=== PATIENT | male | born 1955 | race African-American/Black ===

== ENCOUNTER 2018-11-01 06:08 | Inpatient (IN) | payer MEDICAID ==
[~2018-11-01] VITALS: Ht 165.1 cm; Wt 60.9 kg
[2018-11-01] MEDS ORDERED: MORPHINE SULFATE 4 MG/ML CPJ (NOT FOR IM USE) IV STA (06:39)
[2018-11-01 07:07] LABS: BASOPHILS % 0.5 % (0.0-2.0); EOSINOPHILS % 1.9 % (0.0-5.0); HEMATOCRIT. 28.6 % (42.0-52.0); HEMOGLOBIN. 8.8 g/dL (14.0-18.0); LYMPHOCYTES % 16.5 % (20.0-50.0); MEAN CORPUSCULAR HEMOGLOBIN 27.4 pg (28.0-32.0); MEAN CORPUSCULAR VOLUME 89.1 fL (80.0-94.0); MONOCYTES % 10.6 % (2.0-8.0); NEUTROPHILS % 70.5 % (40.0-76.0); PLATELET 312 x1000/uL (130-400); RED BLOOD CELL COUNT 3.21 mill/uL (4.7-6.1)
[2018-11-01 07:12] LABS: CHLORIDE 107 mEq/L (98-107)
[2018-11-01] MEDS ORDERED: SODIUM CHLORIDE 0.9% 1,000 ML IV ONE (07:28)
[2018-11-01 08:27] LABS: BG BASE EXCESS -1.9 mmol/L (-2.0-2.0); BG CARBOXYHEMOGLOBIN 0.5 % (0.5-1.5); BG FRACTION INSPIRED OXYGEN 100; BG HCO3 ACT 21.5 mmol/L (22.0-26.0); BG METHEMOGLOBIN 1.2 % (0.0-1.5); BG OXYHEMOGLOBIN 97.3 % (94.0-97.0); BG PCO2 31.3 mmHg (35.0-45.0); BG PH 7.455 (7.350-7.450); BG PO2 206.7 mmHg (75.0-100.0); BG SAMPLE SITE RIGHT RADIAL; BG TOTAL HEMOGLOBIN 9.1 g/dL (12.0-18.0); BG VENT MODE MASK - NRB
[2018-11-01] MEDS ORDERED: IOHEXOL-350 100 ML BOTTLE ONE (09:06)
[2018-11-01] MEDS ORDERED: ONDANSETRON HCL 4MG/2ML INJ IV ONE (11:30)
[2018-11-01] MEDS ORDERED: NA PHOS,M-B/NA PHOS,DI-BA ENEMA 118ML PR PRN (12:45)
[2018-11-01] MEDS ORDERED: HYDROCODONE/ACETAMINOPHEN 5/325MG TABLET PO PRN (12:45)
[2018-11-01] MEDS ORDERED: ACETAMINOPHEN 325MG TABLET PO PRN (12:45)
[2018-11-01] MEDS ORDERED: ACETAMINOPHEN 650MG/20.3ML UDC GT PRN (12:45)
[2018-11-01] MEDS ORDERED: MAGNESIUM/ALUMINUM HYDROXIDE/SIMETHICONE 30ML UDC PO PRN (12:45)
[2018-11-01] MEDS ORDERED: IPRATROPIUM/ALBUTEROL 0.5-3(2.5)MG/3ML NEB INH PRN (12:45)
[2018-11-01] MEDS ORDERED: ACETAMINOPHEN 650MG SUPP PR PRN (12:45)
[2018-11-01] MEDS ORDERED: DIPHENHYDRAMINE 50MG/ML VIAL IV PRN (12:45)
[2018-11-01 15:00] VITALS: BP 164/88
[2018-11-01] MEDS ORDERED: METHYLPREDNISOLONE SOD SUCC 40 MG/ML VIAL IV SCH (15:15)
[2018-11-01 15:30] VITALS: BP 164/88
[2018-11-01] MEDS: CLONIDINE 0.1MG TABLET PO PRN (15:55)
[2018-11-01] MEDS ORDERED: FERR325T6 PO (16:22)
[2018-11-01] MEDS ORDERED: HYDR-4134 PO (16:22)
[2018-11-01] MEDS ORDERED: ASPI-1158 PO (16:23)
[2018-11-01] MEDS ORDERED: ISOS30TA6 PO (16:24)
[2018-11-01] MEDS ORDERED: FAMO20TA8 PO (16:24)
[2018-11-01] MEDS ORDERED: CLOP75TA33 PO (16:25)
[2018-11-01] MEDS ORDERED: ATOR-2 PO (16:25)
[2018-11-01] MEDS ORDERED: CARV6.2548 PO (16:25)
[2018-11-01] MEDS ORDERED: NITR0.4T49 SL (16:26)
[2018-11-01] MEDS ORDERED: MOME13HF2 INH (16:27)
[2018-11-01] MEDS ORDERED: FUROSEMIDE 20MG/2ML VIAL IVP NR (17:30)
[2018-11-01] MEDS ORDERED: IPRATROPIUM/ALBUTEROL 0.5-3(2.5)MG/3ML NEB HHN PRN (17:30)
[2018-11-01 18:51] LABS: CREATINE KINASE MB FRACTION 2.3 ng/mL (0.5-3.6)
[2018-11-01 20:06] VITALS: BP 149/92
[2018-11-01 20:46] LABS: CLARITY URINE CLEAR (CLEAR); COLOR URINE YELLOW (YELLOW); KETONES URINE NEGATIVE (NEGATIVE); LEUKOCYTE ESTERASE URINE NEGATIVE (NEGATIVE); NITRITE URINE NEGATIVE (NEGATIVE); OCCULT BLOOD URINE NEGATIVE (NEGATIVE); PROTEIN URINE 1+ (NEGATIVE); SPECIFIC GRAVITY URINE 1.034 (1.005-1.030); UROBILINOGEN URINE 0.2 E.U./dL (0.2-1.0)
[2018-11-01] MEDS: IPRATROPIUM/ALBUTEROL 0.5-3(2.5)MG/3ML NEB INH SCH (21:09)
[2018-11-01] MEDS: BUDESONIDE 0.5MG/2ML NEB HHN SCH (21:10)
[2018-11-01] MEDS: SODIUM CHLORIDE 0.9% INJ 3ML FLUSH IVF SCH (21:42)
[2018-11-02] VITALS: BP 153/89
[2018-11-02] MEDS: IPRATROPIUM/ALBUTEROL 0.5-3(2.5)MG/3ML NEB INH SCH ×4 (00:45→21:01)
[2018-11-02] MEDS: SODIUM CHLORIDE 0.45% 1,000 ML IV SCH ×3 (02:30→22:41)
[2018-11-02 03:01] LABS: BASOPHILS % 0.8 % (0.0-2.0); HEMATOCRIT. 30.9 % (42.0-52.0); HEMOGLOBIN. 9.2 g/dL (14.0-18.0); LYMPHOCYTES % 23.6 % (20.0-50.0); MEAN CORPUSCULAR HEMOGLOBIN 26.6 pg (28.0-32.0); MEAN CORPUSCULAR VOLUME 89.4 fL (80.0-94.0); MONOCYTES % 3.4 % (2.0-8.0); NEUTROPHILS % 72.2 % (40.0-76.0); PLATELET 352 x1000/uL (130-400); RED BLOOD CELL COUNT 3.46 mill/uL (4.7-6.1); RED CELL DISTRIBUTION WIDTH 18.2 % (11.6-14.6)
[2018-11-02 03:04] LABS: CHLORIDE 106 mEq/L (98-107)
[2018-11-02 03:12] LABS: LDL CHOLESTEROL 97 mg/dL (5-100)
[2018-11-02 03:13] LABS: HDL CHOLESTEROL 66 mg/dL (40-59)
[2018-11-02 03:16] LABS: CREATINE KINASE MB FRACTION 2.3 ng/mL (0.5-3.6)
[2018-11-02 04:00] VITALS: BP 155/90
[2018-11-02] MEDS: SODIUM CHLORIDE 0.9% INJ 3ML FLUSH IVF SCH ×3 (06:02→22:41)
[2018-11-02 08:00] VITALS: BP 189/106
[2018-11-02] MEDS ORDERED: FUROSEMIDE 20MG/2ML VIAL IVP SCH (09:00)
[2018-11-02 12:00] VITALS: BP 144/87
[2018-11-02] MEDS: CLONIDINE 0.1MG TABLET PO PRN (13:35)
[2018-11-02 16:00] VITALS: BP 168/91
[2018-11-02] MEDS ORDERED: MAGNESIUM HYDROXIDE 400MG/5ML 30ML UDC PO NR (16:30)
[2018-11-02] MEDS: FUROSEMIDE 20MG/2ML VIAL IVP SCH (17:00)
[2018-11-02 20:00] VITALS: BP 157/89
[2018-11-02] MEDS: BUDESONIDE 0.5MG/2ML NEB HHN SCH (21:14)
[2018-11-02] MEDS: ENOXAPARIN 30MG/0.3ML SYR SUBCUT SCH (22:40)
[2018-11-03] VITALS: BP 151/81
[2018-11-03] MEDS: IPRATROPIUM/ALBUTEROL 0.5-3(2.5)MG/3ML NEB INH SCH ×4 (01:20→21:17)
[2018-11-03 04:00] VITALS: BP 156/85
[2018-11-03] MEDS: SODIUM CHLORIDE 0.9% INJ 3ML FLUSH IVF SCH ×3 (06:29→22:33)
[2018-11-03] MEDS: BUDESONIDE 0.5MG/2ML NEB HHN SCH ×2 (09:14→21:17)
[2018-11-03] MEDS: FUROSEMIDE 20MG/2ML VIAL IVP SCH (09:31)
[2018-11-03] MEDS: SODIUM CHLORIDE 0.45% 1,000 ML IV SCH (09:46)
[2018-11-03 11:50] VITALS: BP 170/89
[2018-11-03] MEDS: CLONIDINE 0.1MG TABLET PO PRN (11:55)
[2018-11-03] MEDS: ASPIRIN 81MG EC TABLET PO SCH (14:32)
[2018-11-03] MEDS: CARVEDILOL 6.25 MG TABLET PO SCH ×2 (14:33→22:32)
[2018-11-03] MEDS: HYDRALAZINE HCL 50MG TABLET PO SCH ×2 (14:33→22:32)
[2018-11-03] MEDS ORDERED: SODIUM POLYSTYRENE SULFONATE 15 G/60 ML BOT PO SCH (15:00)
[2018-11-03 16:00] VITALS: BP 150/72
[2018-11-03] MEDS ORDERED: CARVEDILOL 6.25 MG TABLET PO SCH (16:45)
[2018-11-03] MEDS ORDERED: CLOPIDOGREL 75MG TABLET PO SCH (16:45)
[2018-11-03] MEDS ORDERED: MEDICATION NOT ON FORMULARY EA (Hydralazine Hcl 25 MG) PO SCH (16:45)
[2018-11-03] MEDS: FUROSEMIDE 40MG/4ML VIAL IV SCH (17:04)
[2018-11-03] MEDS: ENOXAPARIN 30MG/0.3ML SYR SUBCUT SCH (18:19)
[2018-11-03] MEDS: ISOSORBIDE MONONITRATE 30MG TABLET SR 24HR PO SCH (18:19)
[2018-11-03 20:00] VITALS: BP 116/54
[2018-11-03] MEDS: ATORVASTATIN CALCIUM 40MG TABLET PO SCH (22:32)
[2018-11-03 23:31] LABS: BASOPHILS % 0.3 % (0.0-2.0); HEMATOCRIT. 27.4 % (42.0-52.0); HEMOGLOBIN. 7.9 g/dL (14.0-18.0); LYMPHOCYTES % 7.7 % (20.0-50.0); MEAN CORPUSCULAR HEMOGLOBIN 27.5 pg (28.0-32.0); MEAN CORPUSCULAR VOLUME 95.2 fL (80.0-94.0); MONOCYTES % 10.8 % (2.0-8.0); NEUTROPHILS % 81.2 % (40.0-76.0); PLATELET 269 x1000/uL (130-400); RED BLOOD CELL COUNT 2.88 mill/uL (4.7-6.1); RED CELL DISTRIBUTION WIDTH 18.6 % (11.6-14.6)
[2018-11-03 23:37] LABS: CHLORIDE 106 mEq/L (98-107)
[2018-11-04] VITALS (7 sets, daily range): BP systolic 120–138; BP diastolic 68–82
[2018-11-04] MEDS: IPRATROPIUM/ALBUTEROL 0.5-3(2.5)MG/3ML NEB INH SCH ×4 (01:13→20:30)
[2018-11-04] MEDS ORDERED: CALCIUM CHLORIDE 1GM/10ML SYR IV ONE (01:45)
[2018-11-04] MEDS ORDERED: SODIUM BICARBONATE 8.4% 1 MEQ/ML 50ML SYR IV NR (02:00)
[2018-11-04] MEDS ORDERED: SODIUM POLYSTYRENE SULFONATE 15 G/60 ML BOT PO NR (02:00)
[2018-11-04] MEDS ORDERED: INSULIN REGULAR (HUMULIN R) UD 100 UNITS/ML SYR IV NR (02:00)
[2018-11-04] MEDS ORDERED: CALCIUM CHLORIDE 1000 MG in DEXTROSE 5% WATER 100 ML IV NR (02:00)
[2018-11-04] MEDS ORDERED: FUROSEMIDE 100MG/10ML VIAL IVP NR (02:00)
[2018-11-04] MEDS ORDERED: DEXTROSE 50% WATER 50ML SYRINGE IV NR (04:00)
[2018-11-04] MEDS: HYDRALAZINE HCL 50MG TABLET PO SCH ×3 (06:03→21:30)
[2018-11-04] MEDS: SODIUM CHLORIDE 0.9% INJ 3ML FLUSH IVF SCH ×3 (06:44→21:31)
[2018-11-04 07:27] LABS: BASOPHILS % 0.2 % (0.0-2.0); HEMATOCRIT. 25.2 % (42.0-52.0); HEMOGLOBIN. 7.9 g/dL (14.0-18.0); LYMPHOCYTES % 9.8 % (20.0-50.0); MEAN CORPUSCULAR HEMOGLOBIN 27.1 pg (28.0-32.0); MEAN CORPUSCULAR VOLUME 85.9 fL (80.0-94.0); MEAN PLATELET VOLUME 7.6 fl (7.4-10.4); MONOCYTES % 14.4 % (2.0-8.0); NEUTROPHILS % 75.6 % (40.0-76.0); PLATELET 255 x1000/uL (130-400); RED BLOOD CELL COUNT 2.93 mill/uL (4.7-6.1); RED CELL DISTRIBUTION WIDTH 17.9 % (11.6-14.6)
[2018-11-04] MEDS: INSULIN LISPRO 100 UNITS/ML SUBCUT SCH ×4 (07:50→21:00)
[2018-11-04] MEDS ORDERED: DEXTROSE 50% WATER 50ML SYRINGE IV PRN (08:00)
[2018-11-04 08:17] LABS: PHOSPHORUS 8.1 mg/dL (2.5-4.9)
[2018-11-04] MEDS: CARVEDILOL 6.25 MG TABLET PO SCH (08:51)
[2018-11-04] MEDS: FUROSEMIDE 40MG/4ML VIAL IV SCH (08:51)
[2018-11-04] MEDS: ISOSORBIDE MONONITRATE 30MG TABLET SR 24HR PO SCH (08:51)
[2018-11-04] MEDS: ASPIRIN 81MG EC TABLET PO SCH (08:51)
[2018-11-04 09:20] LABS: INR 1.5; PROTHROMBIN TIME 15.4 sec (9.1-11.1)
[2018-11-04] MEDS: BUDESONIDE 0.5MG/2ML NEB HHN SCH ×2 (09:29→20:30)
[2018-11-04] MEDS ORDERED: LIDOCAINE HCL 1% 20ML VIAL (Pyxis) INJ ONE (09:48)
[2018-11-04] MEDS ORDERED: SODIUM BICARBONATE 4% (2.4MEQ) 5ML VIAL IV ONE (09:48)
[2018-11-04] MEDS: BLOOD SUGAR DIAGNOSTIC STRIP TEST SCH ×3 (12:57→21:31)
[2018-11-04] MEDS: CALCIUM ACETATE 667MG CAPSULE PO SCH ×2 (13:27→18:37)
[2018-11-04] MEDS: ENOXAPARIN 30MG/0.3ML SYR SUBCUT SCH (18:37)
[2018-11-04] MEDS: ATORVASTATIN CALCIUM 40MG TABLET PO SCH (21:30)
[2018-11-04] MEDS: CARVEDILOL 12.5MG TABLET PO SCH (21:30)
[2018-11-04] MEDS: AMLODIPINE 5MG TABLET PO SCH (21:31)
[2018-11-05] VITALS (7 sets, daily range): BP systolic 129–158; BP diastolic 72–89
[2018-11-05] MEDS: IPRATROPIUM/ALBUTEROL 0.5-3(2.5)MG/3ML NEB INH SCH ×3 (02:47→20:35)
[2018-11-05] MEDS: SODIUM CHLORIDE 0.9% INJ 3ML FLUSH IVF SCH ×3 (05:45→21:47)
[2018-11-05] MEDS: HYDRALAZINE HCL 50MG TABLET PO SCH ×3 (06:06→21:36)
[2018-11-05] MEDS: BLOOD SUGAR DIAGNOSTIC STRIP TEST SCH ×4 (06:27→21:36)
[2018-11-05 06:30] LABS: BASOPHILS % 0.3 % (0.0-2.0); EOSINOPHILS % 0.3 % (0.0-5.0); HEMATOCRIT. 23.7 % (42.0-52.0); HEMOGLOBIN. 7.3 g/dL (14.0-18.0); LYMPHOCYTES % 11.6 % (20.0-50.0); MEAN CORPUSCULAR HEMOGLOBIN 26.8 pg (28.0-32.0); MEAN CORPUSCULAR VOLUME 86.9 fL (80.0-94.0); MEAN PLATELET VOLUME 7.7 fl (7.4-10.4); MONOCYTES % 10.7 % (2.0-8.0); NEUTROPHILS % 77.1 % (40.0-76.0); PLATELET 192 x1000/uL (130-400); RED BLOOD CELL COUNT 2.73 mill/uL (4.7-6.1); RED CELL DISTRIBUTION WIDTH 18.4 % (11.6-14.6)
[2018-11-05 06:31] LABS: PHOSPHORUS 4.2 mg/dL (2.5-4.9)
[2018-11-05] MEDS: INSULIN LISPRO 100 UNITS/ML SUBCUT SCH ×4 (07:50→21:00)
[2018-11-05] MEDS: CALCIUM ACETATE 667MG CAPSULE PO SCH ×3 (07:50→18:26)
[2018-11-05] MEDS: ASPIRIN 81MG EC TABLET PO SCH (08:44)
[2018-11-05] MEDS: AMLODIPINE 5MG TABLET PO SCH ×2 (08:45→21:00)
[2018-11-05] MEDS: CARVEDILOL 12.5MG TABLET PO SCH ×2 (08:45→21:00)
[2018-11-05] MEDS: ISOSORBIDE MONONITRATE 30MG TABLET SR 24HR PO SCH (09:00)
[2018-11-05 11:18] LABS: HEPATITIS B SURFACE AB 720.5 mIU/mL
[2018-11-05 11:27] LABS: HEPATITIS B SURFACE ANTIGEN NEGATIVE
[2018-11-05] MEDS ORDERED: PAPAVERINE HCL 30 MG/ML 2ML IV ONE (12:19)
[2018-11-05] MEDS ORDERED: LIDOCAINE HCL 1% 20ML VIAL (Pyxis) INJ ONE (12:19)
[2018-11-05] MEDS ORDERED: HEPARIN SODIUM 1,000 UNIT/1ML VIAL IV ONE (12:20)
[2018-11-05] MEDS ORDERED: THROMBIN (BOVINE) 5000 UNITS/VIAL TOP ONE (12:20)
[2018-11-05] MEDS ORDERED: BACITRACIN 15GM TUBE TOP ONE (12:20)
[2018-11-05] MEDS ORDERED: BACITRACIN 50,000 UNITS/VIAL ONE (12:21)
[2018-11-05] MEDS ORDERED: BUPIVACAINE HCL/PF 0.5% (5MG/ML) 10ML ONE (12:21)
[2018-11-05] MEDS ORDERED: NORMAL SALINE 0.9% 10 ML SYR ONE (12:21)
[2018-11-05] MEDS: ENOXAPARIN 30MG/0.3ML SYR SUBCUT SCH (18:26)
[2018-11-05] MEDS: ATORVASTATIN CALCIUM 40MG TABLET PO SCH (21:47)
[2018-11-06] VITALS: BP 133/73
[2018-11-06] MEDS: IPRATROPIUM/ALBUTEROL 0.5-3(2.5)MG/3ML NEB INH SCH ×3 (02:09→13:20)
[2018-11-06 04:00] VITALS: BP 140/79
[2018-11-06] MEDS: SODIUM CHLORIDE 0.9% INJ 3ML FLUSH IVF SCH ×2 (05:03→13:35)
[2018-11-06] MEDS: BLOOD SUGAR DIAGNOSTIC STRIP TEST SCH ×3 (06:25→17:53)
[2018-11-06] MEDS: HYDRALAZINE HCL 50MG TABLET PO SCH ×2 (06:28→13:31)
[2018-11-06 07:05] LABS: BASOPHILS % 0.4 % (0.0-2.0); EOSINOPHILS % 1.3 % (0.0-5.0); HEMATOCRIT. 24.3 % (42.0-52.0); HEMOGLOBIN. 7.7 g/dL (14.0-18.0); LYMPHOCYTES % 11.5 % (20.0-50.0); MEAN CORPUSCULAR HEMOGLOBIN 27.3 pg (28.0-32.0); MEAN CORPUSCULAR VOLUME 86.8 fL (80.0-94.0); MEAN PLATELET VOLUME 7.5 fl (7.4-10.4); MONOCYTES % 12.9 % (2.0-8.0); NEUTROPHILS % 73.9 % (40.0-76.0); PLATELET 133 x1000/uL (130-400); RED BLOOD CELL COUNT 2.81 mill/uL (4.7-6.1); RED CELL DISTRIBUTION WIDTH 18.2 % (11.6-14.6)
[2018-11-06] MEDS: INSULIN LISPRO 100 UNITS/ML SUBCUT SCH ×3 (07:50→17:50)
[2018-11-06 07:51] LABS: PHOSPHORUS 2.8 mg/dL (2.5-4.9)
[2018-11-06 08:00] VITALS: BP 146/76
[2018-11-06] MEDS: ISOSORBIDE MONONITRATE 30MG TABLET SR 24HR PO SCH (09:53)
[2018-11-06] MEDS: ASPIRIN 81MG EC TABLET PO SCH (09:54)
[2018-11-06] MEDS: CARVEDILOL 12.5MG TABLET PO SCH (09:54)
[2018-11-06] MEDS: CALCIUM ACETATE 667MG CAPSULE PO SCH ×3 (09:54→17:55)
[2018-11-06] MEDS: AMLODIPINE 5MG TABLET PO SCH (09:54)
[2018-11-06 12:00] VITALS: BP 120/66
[2018-11-06 13:06] LABS: HIV SCREEN 4G Non Reactive (Non Reactive)
[2018-11-06 16:00] VITALS: BP 129/80
[2018-11-06] MEDS ORDERED: CALC667C PO (17:24)
[2018-11-06] MEDS ORDERED: ENOXAPARIN 40MG/0.4ML SYR SUBCUT SCH (18:00)
[2018-11-06 20:00] VITALS: BP 126/70
== END 2018-11-06 20:55 | disposition home or self-care (01) | DRG 469 ==
LOC: ER 06:08 → 6WST 09:41 → EDBEDREQ 09:52 → ENRESERV 13:30
PROVIDERS: ADMIT Family Medicine; ATTEND Family Medicine
PROC: 02HV33Z Insertion of Infusion Device into Superior Vena Cava, Percutaneous Approach (ICD-10-PCS; principal; 2018-11-04)
PROC: B5181ZA Fluoroscopy of Superior Vena Cava using Low Osmolar Contrast, Guidance (ICD-10-PCS; 2018-11-04)
PROC: 5A1D70Z Performance of Urinary Filtration, Intermittent, Less than 6 Hours Per Day (ICD-10-PCS; 2018-11-04)
PROC: B548ZZA Ultrasonography of Superior Vena Cava, Guidance (ICD-10-PCS; 2018-11-04)
DX: N17.9 Acute kidney failure, unspecified (principal); J96.01 Acute respiratory failure with hypoxia; I50.43 Acute on chronic combined systolic (congestive) and diastolic (congestive) heart failure; J84.9 Interstitial pulmonary disease, unspecified; E44.0 Moderate protein-calorie malnutrition; I27.20 Pulmonary hypertension, unspecified; I71.4 Abdominal aortic aneurysm, without rupture; J44.1 Chronic obstructive pulmonary disease with (acute) exacerbation; I13.0 Hypertensive heart and chronic kidney disease with heart failure and stage 1 through stage 4 chronic kidney disease, or unspecified chronic kidney disease; E87.5 Hyperkalemia; D64.9 Anemia, unspecified; N18.9 Chronic kidney disease, unspecified; I71.2 Thoracic aortic aneurysm, without rupture; I25.10 Atherosclerotic heart disease of native coronary artery without angina pectoris; F17.210 Nicotine dependence, cigarettes, uncomplicated; K30 Functional dyspepsia; K59.00 Constipation, unspecified; R74.8 Abnormal levels of other serum enzymes; K02.9 Dental caries, unspecified; I08.0 Rheumatic disorders of both mitral and aortic valves; I47.1 Supraventricular tachycardia; E87.2 Acidosis; S51.802A Unspecified open wound of left forearm, initial encounter; S71.102A Unspecified open wound, left thigh, initial encounter; X58.XXXA Exposure to other specified factors, initial encounter; T50.905A Adverse effect of unspecified drugs, medicaments and biological substances, initial encounter; N14.1 Nephropathy induced by other drugs, medicaments and biological substances; I25.5 Ischemic cardiomyopathy; Z82.49 Family history of ischemic heart disease and other diseases of the circulatory system; Z86.79 Personal history of other diseases of the circulatory system; Z79.899 Other long term (current) drug therapy; Z79.82 Long term (current) use of aspirin; Z68.22 Body mass index [BMI] 22.0-22.9, adult; Y93.89 Activity, other specified; Y92.89 Other specified places as the place of occurrence of the external cause; Y99.8 Other external cause status
CPT/HCPCS: 36415; 36556; 36600; 71045; 71275; 76770; 76937; 77001; 80048; 80061; 82375; 82550; 82553; 82805; 82962; 83615; 83735; 83880; 84100; 84134; 84484; 86705; 86706; 86803; 86850; 86900; 87340; 87389; 93005; 93306; 93970; 94640; 96361; 96374; 97162; 99285; C1752; C1893; J1642; J1644; J1650; J1815; J1940; J2270; J2405; J2440; J2920; J3490; J7030; J7060; J7620; J7626; Q9967; A4315

== ENCOUNTER 2018-11-18 15:41 | Emergency (ER) | payer MEDICAID ==
[~2018-11-18] VITALS: Ht 167.6 cm; Wt 65.0 kg
[~2018-11-18 15:41] MED LIST: ASPI-1158 PO; ATOR-2 PO; CALC667C PO; CARV6.2548 PO; CLOP75TA33 PO; FAMO20TA8 PO; FERR325T6 PO; HYDR-4134 PO; ISOS30TA6 PO; MOME13HF2 INH; NITR0.4T49 SL
[2018-11-18 15:45] VITALS: BP 142/80
== END 2018-11-18 17:23 | disposition left against medical advice (07) ==
LOC: ER 15:41
DX: R07.89 Other chest pain (principal); Z53.21 Procedure and treatment not carried out due to patient leaving prior to being seen by health care provider

== ENCOUNTER 2018-12-10 12:06 | Emergency (ER) | payer MEDICAID ==
[~2018-12-10] VITALS: Ht 172.7 cm; Wt 64.0 kg
[2018-12-10 12:12] VITALS: BP 135/79
== END 2018-12-10 13:34 | disposition left against medical advice (07) ==
LOC: ER 12:06
DX: Z53.21 Procedure and treatment not carried out due to patient leaving prior to being seen by health care provider (principal)

== ENCOUNTER 2018-12-14 20:37 | Inpatient (IN) | payer MEDICAID ==
[~2018-12-14] VITALS: Ht 167.6 cm; Wt 73.1 kg
[2018-12-14 22:54] LABS: BASOPHILS % 1.2 % (0.0-2.0); HEMATOCRIT. 34.2 % (42.0-52.0); HEMOGLOBIN. 10.6 g/dL (14.0-18.0); MEAN CORPUSCULAR VOLUME 90.1 fL (80.0-94.0); MEAN PLATELET VOLUME 8.2 fl (7.4-10.4); MONOCYTES % 10.4 % (2.0-8.0); NEUTROPHILS % 69.4 % (40.0-76.0); PLATELET 199 x1000/uL (130-400); RED CELL DISTRIBUTION WIDTH 24.6 % (11.6-14.6)
[2018-12-14 22:59] LABS: CHLORIDE 108 mEq/L (98-107)
[2018-12-14 23:08] LABS: INR 1.3; PARTIAL THROMBOPLASTIN TIME 27.5 sec (23.4-31.0)
[2018-12-14 23:14] LABS: PLATELET ESTIMATE NORMAL
[2018-12-14] MEDS ORDERED: MORPHINE SULFATE 4 MG/ML CPJ (NOT FOR IM USE) IV STA (23:47)
[2018-12-14] MEDS ORDERED: ONDANSETRON HCL 4MG/2ML INJ IV STA (23:47)
[2018-12-15] MEDS ORDERED: ACETAMINOPHEN 325MG TABLET PO PRN (06:45)
[2018-12-15] MEDS ORDERED: ACETAMINOPHEN 650MG SUPP PR PRN (06:45)
[2018-12-15] MEDS ORDERED: HYDRALAZINE 20MG/ML VIAL IV PRN (06:45)
[2018-12-15] MEDS ORDERED: DIPHENHYDRAMINE 50MG/ML VIAL IV PRN (06:45)
[2018-12-15] MEDS ORDERED: HYDROMORPHONE HCL/PF 2MG/ML CPJ IV PRN (06:45)
[2018-12-15] MEDS ORDERED: LORAZEPAM 2MG/ML CPJ IV PRN (06:45)
[2018-12-15] MEDS ORDERED: CLONIDINE 0.1MG TABLET PO PRN (06:45)
[2018-12-15] MEDS ORDERED: HYDROCODONE/ACETAMINOPHEN 5/325MG TABLET PO PRN (06:45)
[2018-12-15] MEDS ORDERED: MAGNESIUM/ALUMINUM HYDROXIDE/SIMETHICONE 30ML UDC PO PRN (06:45)
[2018-12-15] MEDS ORDERED: ONDANSETRON HCL 4MG/2ML INJ IV PRN (06:45)
[2018-12-15] MEDS ORDERED: DOCUSATE SODIUM 100MG CAPSULE PO PRN (09:00)
[2018-12-15 09:40] VITALS: BP 145/86
[2018-12-15] MEDS ORDERED: IPRATROPIUM/ALBUTEROL 0.5-3(2.5)MG/3ML NEB INH PRN (10:00)
[2018-12-15] MEDS: ENOXAPARIN 30MG/0.3ML SYR SUBCUT SCH (10:15)
[2018-12-15] MEDS ORDERED: IOHEXOL-300 100 ML BOTTLE ONE (11:31)
[2018-12-15] MEDS ORDERED: HEPARIN SODIUM 1,000 UNIT/1ML VIAL IV NR (14:15)
[2018-12-15] MEDS: SODIUM CHLORIDE 0.9% INJ 3ML FLUSH IVF SCH ×2 (14:50→21:16)
[2018-12-15 16:00] VITALS: BP 122/76
[2018-12-15] MEDS ORDERED: AMIO100T4 PO (16:21)
[2018-12-15] MEDS ORDERED: HYDR100T26 PO (16:23)
[2018-12-15] MEDS ORDERED: FURO80TA3 PO (16:23)
[2018-12-15] MEDS ORDERED: FURO40TA5 PO (16:23)
[2018-12-15] MEDS ORDERED: CALC0.253 PO (16:45)
[2018-12-15 18:09] LABS: CREATINE KINASE MB FRACTION 1.8 ng/mL (0.5-3.6)
[2018-12-15 20:00] VITALS: BP 129/87
[2018-12-16] VITALS: BP 142/85
[2018-12-16 01:30] LABS: CREATINE KINASE MB FRACTION 1.5 ng/mL (0.5-3.6)
[2018-12-16 04:00] VITALS: BP 136/86
[2018-12-16] MEDS: SODIUM CHLORIDE 0.9% INJ 3ML FLUSH IVF SCH ×3 (06:25→21:05)
[2018-12-16] MEDS: GUAIFENESIN 200MG/10ML SUGAR FREE UDC PO PRN ×2 (06:27→17:37)
[2018-12-16 07:33] LABS: BASOPHILS % 0.7 % (0.0-2.0); EOSINOPHILS % 2.9 % (0.0-5.0); HEMATOCRIT. 33.6 % (42.0-52.0); HEMOGLOBIN. 10.4 g/dL (14.0-18.0); LYMPHOCYTES % 18.4 % (20.0-50.0); MEAN CORPUSCULAR HEMOGLOBIN 27.8 pg (28.0-32.0); MEAN CORPUSCULAR VOLUME 89.6 fL (80.0-94.0); MEAN PLATELET VOLUME 7.9 fl (7.4-10.4); MONOCYTES % 13.8 % (2.0-8.0); NEUTROPHILS % 64.2 % (40.0-76.0); PLATELET 176 x1000/uL (130-400); RED BLOOD CELL COUNT 3.75 mill/uL (4.7-6.1); RED CELL DISTRIBUTION WIDTH 24.4 % (11.6-14.6)
[2018-12-16 08:00] VITALS: BP 148/82
[2018-12-16] MEDS: ENOXAPARIN 30MG/0.3ML SYR SUBCUT SCH (08:06)
[2018-12-16 08:14] LABS: CHLORIDE 105 mEq/L (98-107)
[2018-12-16 08:20] LABS: PHOSPHORUS 5.7 mg/dL (2.5-4.9)
[2018-12-16 12:02] VITALS: BP 137/82
[2018-12-16] MEDS: AMIODARONE HCL 200 MG TABLET PO SCH (13:15)
[2018-12-16] MEDS: CARVEDILOL 6.25 MG TABLET PO SCH ×2 (13:15→20:20)
[2018-12-16] MEDS: LISINOPRIL 10MG TABLET PO SCH ×2 (13:15→20:21)
[2018-12-16] MEDS: ASPIRIN 81MG EC TABLET PO SCH (13:16)
[2018-12-16] MEDS: CLOPIDOGREL 75MG TABLET PO SCH (13:16)
[2018-12-16 16:00] VITALS: BP 103/64
[2018-12-16 20:00] VITALS: BP 94/62
[2018-12-16] MEDS ORDERED: ATORVASTATIN CALCIUM 40MG TABLET PO SCH (21:00)
[2018-12-17] VITALS (18 sets, daily range): BP systolic 98–126; BP diastolic 66–82
[2018-12-17] MEDS: SODIUM CHLORIDE 0.9% INJ 3ML FLUSH IVF SCH ×2 (06:11→14:13)
[2018-12-17 06:18] LABS: BASOPHILS % 0.9 % (0.0-2.0); EOSINOPHILS % 3.6 % (0.0-5.0); HEMATOCRIT. 33.2 % (42.0-52.0); HEMOGLOBIN. 10.3 g/dL (14.0-18.0); LYMPHOCYTES % 9.1 % (20.0-50.0); MEAN CORPUSCULAR HEMOGLOBIN 27.9 pg (28.0-32.0); MEAN CORPUSCULAR VOLUME 90.2 fL (80.0-94.0); MEAN PLATELET VOLUME 7.9 fl (7.4-10.4); MONOCYTES % 12.1 % (2.0-8.0); NEUTROPHILS % 74.3 % (40.0-76.0); PLATELET 162 x1000/uL (130-400); RED BLOOD CELL COUNT 3.68 mill/uL (4.7-6.1); RED CELL DISTRIBUTION WIDTH 24.4 % (11.6-14.6)
[2018-12-17 06:53] LABS: PHOSPHORUS 5.6 mg/dL (2.5-4.9)
[2018-12-17] MEDS ORDERED: LIDOCAINE HCL 1% 20ML VIAL (Pyxis) INJ ONE ×2 (09:00→09:39)
[2018-12-17] MEDS ORDERED: CEFAZOLIN 1000MG PREMIX 50 ML IV ONE ×2 (09:00)
[2018-12-17] MEDS: AMIODARONE HCL 200 MG TABLET PO SCH (09:00)
[2018-12-17] MEDS: LISINOPRIL 10MG TABLET PO SCH (09:00)
[2018-12-17] MEDS: CLOPIDOGREL 75MG TABLET PO SCH (09:00)
[2018-12-17] MEDS: ASPIRIN 81MG EC TABLET PO SCH (09:00)
[2018-12-17] MEDS ORDERED: FENTANYL CITRATE/PF 50MCG/ML 2ML VIAL ONE (09:00)
[2018-12-17] MEDS: CARVEDILOL 6.25 MG TABLET PO SCH (09:00)
[2018-12-17] MEDS ORDERED: SODIUM BICARBONATE 4% (2.4MEQ) 5ML VIAL IV ONE (09:00)
[2018-12-17] MEDS: ENOXAPARIN 30MG/0.3ML SYR SUBCUT SCH (09:00)
[2018-12-17] MEDS ORDERED: FENTANYL CITRATE/PF 50MCG/ML 2ML VIAL IV ONE (09:45)
== END 2018-12-17 17:53 | disposition home health service (06) | DRG 466 ==
LOC: ER 20:37 → 8WST 12-15 02:43 → EDBEDREQTM 12-15 02:48 → EDBEDREQ 12-15 02:48 → ENRESERV 12-15 08:15
PROVIDERS: ADMIT Internal Medicine; ATTEND Internal Medicine
PROC: 02HV33Z Insertion of Infusion Device into Superior Vena Cava, Percutaneous Approach (ICD-10-PCS; principal; 2018-12-15)
PROC: B548ZZA Ultrasonography of Superior Vena Cava, Guidance (ICD-10-PCS; 2018-12-15)
PROC: 5A1D70Z Performance of Urinary Filtration, Intermittent, Less than 6 Hours Per Day (ICD-10-PCS; 2018-12-15)
PROC: B5181ZA Fluoroscopy of Superior Vena Cava using Low Osmolar Contrast, Guidance (ICD-10-PCS; 2018-12-15)
PROC: 02PYX3Z Removal of Infusion Device from Great Vessel, External Approach (ICD-10-PCS; 2018-12-17)
PROC: 02HV33Z Insertion of Infusion Device into Superior Vena Cava, Percutaneous Approach (ICD-10-PCS; 2018-12-17)
PROC: B5181ZA Fluoroscopy of Superior Vena Cava using Low Osmolar Contrast, Guidance (ICD-10-PCS; 2018-12-17)
PROC: 0JH63XZ Insertion of Tunneled Vascular Access Device into Chest Subcutaneous Tissue and Fascia, Percutaneous Approach (ICD-10-PCS; 2018-12-17)
DX: T82.42XA Displacement of vascular dialysis catheter, initial encounter (principal); N18.6 End stage renal disease; J96.91 Respiratory failure, unspecified with hypoxia; I13.2 Hypertensive heart and chronic kidney disease with heart failure and with stage 5 chronic kidney disease, or end stage renal disease; J84.9 Interstitial pulmonary disease, unspecified; I27.20 Pulmonary hypertension, unspecified; I82.C11 Acute embolism and thrombosis of right internal jugular vein; E87.2 Acidosis; R18.8 Other ascites; I50.9 Heart failure, unspecified; I42.9 Cardiomyopathy, unspecified; E78.5 Hyperlipidemia, unspecified; K57.90 Diverticulosis of intestine, part unspecified, without perforation or abscess without bleeding; I25.10 Atherosclerotic heart disease of native coronary artery without angina pectoris; J44.9 Chronic obstructive pulmonary disease, unspecified; Y84.1 Kidney dialysis as the cause of abnormal reaction of the patient, or of later complication, without mention of misadventure at the time of the procedure; D64.9 Anemia, unspecified; F17.200 Nicotine dependence, unspecified, uncomplicated; I08.0 Rheumatic disorders of both mitral and aortic valves; I25.5 Ischemic cardiomyopathy; Z82.49 Family history of ischemic heart disease and other diseases of the circulatory system; Z91.15 Patient's noncompliance with renal dialysis; Z91.19 Patient's noncompliance with other medical treatment and regimen; Z99.2 Dependence on renal dialysis; Z95.1 Presence of aortocoronary bypass graft; Z95.2 Presence of prosthetic heart valve; Z79.899 Other long term (current) drug therapy; Z79.82 Long term (current) use of aspirin; Y92.89 Other specified places as the place of occurrence of the external cause
CPT/HCPCS: 36415; 36558; 36569; 36589; 71045; 71260; 74176; 77001; 80048; 82550; 82553; 83605; 83735; 83880; 84100; 84484; 93005; 96374; 96375; 97161; 99152; 99153; 99285; C1750; C1752; C1769; J0690; J1642; J1644; J1650; J2270; J2405; J3010; J3490; J7050; Q9967; G0500

== ENCOUNTER 2018-12-29 15:23 | Inpatient (IN) | payer MEDICAID ==
[~2018-12-29] VITALS: Ht 157.5 cm; Wt 56.7 kg
[~2018-12-29 15:23] MED LIST changes: +AMIO100T4 PO; +CALC0.253 PO; -CALC667C PO; +FURO40TA5 PO; +FURO80TA3 PO; +HYDR100T26 PO; -NITR0.4T49 SL
[2018-12-29] MEDS ORDERED: NITROGLYCERIN OINT 1GM/INCH UDPKT TD ONE (16:45)
[2018-12-29] MEDS ORDERED: ONDANSETRON HCL 4MG/2ML INJ IV STA (16:45)
[2018-12-29] MEDS ORDERED: ASPIRIN 81MG TABLET PO ONE (16:45)
[2018-12-29] MEDS ORDERED: MORPHINE SULFATE 4 MG/ML CPJ (NOT FOR IM USE) IV STA (16:45)
[2018-12-29 17:04] LABS: CHLORIDE 105 mEq/L (98-107)
[2018-12-29 17:08] LABS: INR 1.2; PARTIAL THROMBOPLASTIN TIME 27.6 sec (23.4-31.0); PROTHROMBIN TIME 12.5 sec (9.6-11.0)
[2018-12-29 17:10] LABS: PHOSPHORUS 3.1 mg/dL (2.5-4.9)
[2018-12-29 17:41] LABS: BASOPHILS % 1.4 % (0.0-2.0); EOSINOPHILS % 5.9 % (0.0-5.0); HEMOGLOBIN. 10.3 g/dL (14.0-18.0); LYMPHOCYTES % 18.3 % (20.0-50.0); MEAN CORPUSCULAR HEMOGLOBIN 27.4 pg (28.0-32.0); MEAN PLATELET VOLUME 7.4 fl (7.4-10.4); MONOCYTES % 11.1 % (2.0-8.0); NEUTROPHILS % 63.3 % (40.0-76.0); PLATELET 214 x1000/uL (130-400); RED BLOOD CELL COUNT 3.76 mill/uL (4.7-6.1); RED CELL DISTRIBUTION WIDTH 23.2 % (11.6-14.6)
[2018-12-29 17:51] LABS: MEAN CORPUSCULAR VOLUME 87.8 fL (80.0-94.0)
[2018-12-29 18:01] LABS: PLATELET ESTIMATE NORMAL
[2018-12-29] MEDS ORDERED: MORPHINE SULFATE 4 MG/ML CPJ (NOT FOR IM USE) IV PRN (19:00)
[2018-12-29] MEDS ORDERED: ONDANSETRON HCL 4MG/2ML INJ IV PRN (19:00)
[2018-12-29] MEDS ORDERED: ACETAMINOPHEN 325MG TABLET PO PRN (19:00)
[2018-12-29] MEDS ORDERED: CLONIDINE 0.1MG TABLET PO PRN (19:00)
[2018-12-29] MEDS ORDERED: ZOLPIDEM TARTRATE 5MG TABLET PO PRN (19:00)
[2018-12-29 22:00] VITALS: BP 150/94
[2018-12-29] MEDS: AMLODIPINE 5MG TABLET PO SCH (22:27)
[2018-12-29] MEDS: AMIODARONE HCL 200 MG TABLET PO SCH (22:27)
[2018-12-29] MEDS: CARVEDILOL 6.25 MG TABLET PO SCH (22:28)
[2018-12-30] VITALS: BP 136/72
[2018-12-30 04:00] VITALS: BP 118/78
[2018-12-30 06:29] LABS: BASOPHILS % 1.4 % (0.0-2.0); EOSINOPHILS % 6.8 % (0.0-5.0); HEMATOCRIT. 34.1 % (42.0-52.0); HEMOGLOBIN. 10.4 g/dL (14.0-18.0); LYMPHOCYTES % 18.6 % (20.0-50.0); MEAN CORPUSCULAR HEMOGLOBIN 27.1 pg (28.0-32.0); MEAN CORPUSCULAR VOLUME 88.8 fL (80.0-94.0); MEAN PLATELET VOLUME 7.7 fl (7.4-10.4); MONOCYTES % 11.5 % (2.0-8.0); NEUTROPHILS % 61.7 % (40.0-76.0); PLATELET 200 x1000/uL (130-400); RED BLOOD CELL COUNT 3.83 mill/uL (4.7-6.1); RED CELL DISTRIBUTION WIDTH 23.2 % (11.6-14.6)
[2018-12-30 08:00] VITALS: BP 123/77
[2018-12-30] MEDS: CARVEDILOL 6.25 MG TABLET PO SCH ×2 (09:52→21:00)
[2018-12-30] MEDS: AMLODIPINE 5MG TABLET PO SCH ×2 (09:53→21:00)
[2018-12-30] MEDS: AMIODARONE HCL 200 MG TABLET PO SCH (09:53)
[2018-12-30] MEDS: LOSARTAN POTASSIUM 25 MG TABLET PO SCH (09:53)
[2018-12-30] MEDS: CLOPIDOGREL 75MG TABLET PO SCH (09:54)
[2018-12-30] MEDS: ASPIRIN 81MG TABLET PO SCH (09:54)
[2018-12-30] MEDS: ENOXAPARIN 30MG/0.3ML SYR SUBCUT SCH (09:55)
[2018-12-30 12:00] VITALS: BP 127/81
[2018-12-30 16:00] VITALS: BP 107/63
[2018-12-30] MEDS ORDERED: TRAMADOL 50MG TABLET PO PRN (18:30)
[2018-12-30] MEDS ORDERED: NA PHOS,M-B/NA PHOS,DI-BA ENEMA 118ML PR ONE (19:30)
[2018-12-30 20:00] VITALS: BP 98/61
[2018-12-31] VITALS: BP 104/66
[2018-12-31 03:25] LABS: *AMPHETAMINES SCREEN URINE NEGATIVE (NEGATIVE); *BARBITURATES SCREEN URINE NEGATIVE (NEGATIVE); *BENZODIAZEPINES SCREEN URINE NEGATIVE (NEGATIVE); *COCAINE SCREEN URINE NEGATIVE (NEGATIVE)
[2018-12-31 03:26] LABS: CANNABINOID URINE SCREEN NEGATIVE (NEGATIVE); METHADONE URINE SCREEN NEGATIVE (NEGATIVE); OPIATES URINE SCREEN PRESUMTIVE POSITIVE (NEGATIVE); PHENCYCLIDINE URINE SCREEN NEGATIVE (NEGATIVE)
[2018-12-31 04:00] VITALS: BP 120/82
[2018-12-31 06:34] LABS: BASOPHILS % 1.2 % (0.0-2.0); EOSINOPHILS % 8.1 % (0.0-5.0); HEMATOCRIT. 31.9 % (42.0-52.0); LYMPHOCYTES % 13.8 % (20.0-50.0); MEAN CORPUSCULAR HEMOGLOBIN 27.5 pg (28.0-32.0); MEAN CORPUSCULAR VOLUME 87.7 fL (80.0-94.0); MEAN PLATELET VOLUME 7.6 fl (7.4-10.4); MONOCYTES % 11.9 % (2.0-8.0); PLATELET 155 x1000/uL (130-400); RED BLOOD CELL COUNT 3.63 mill/uL (4.7-6.1); RED CELL DISTRIBUTION WIDTH 23.1 % (11.6-14.6)
[2018-12-31 07:02] LABS: CHLORIDE 103 mEq/L (98-107)
[2018-12-31 07:26] LABS: PHOSPHORUS 2.6 mg/dL (2.5-4.9)
[2018-12-31 07:27] LABS: LDL CHOLESTEROL 66 mg/dL (5-100)
[2018-12-31 07:28] LABS: CREATINE KINASE 58 IU/L (39-308); CREATINE KINASE MB FRACTION 1.4 ng/mL (0.5-3.6); HDL CHOLESTEROL 39 mg/dL (40-59)
[2018-12-31 08:00] VITALS: BP 131/80
[2018-12-31] MEDS: CARVEDILOL 6.25 MG TABLET PO SCH (08:22)
[2018-12-31] MEDS: ASPIRIN 81MG TABLET PO SCH (08:22)
[2018-12-31] MEDS: CLOPIDOGREL 75MG TABLET PO SCH (08:22)
[2018-12-31] MEDS: LOSARTAN POTASSIUM 25 MG TABLET PO SCH (08:22)
[2018-12-31] MEDS: AMLODIPINE 5MG TABLET PO SCH (08:22)
[2018-12-31] MEDS: AMIODARONE HCL 200 MG TABLET PO SCH (08:22)
[2018-12-31] MEDS: ENOXAPARIN 30MG/0.3ML SYR SUBCUT SCH (08:23)
[2018-12-31 15:48] VITALS: BP 142/73
[2018-12-31 16:00] VITALS: BP 158/73
== END 2018-12-31 18:13 | disposition home health service (06) | DRG 194 ==
LOC: ER 15:23 → 7WST 17:51 → EDBEDREQ 17:59 → ENRESERV 19:51
PROVIDERS: ADMIT Internal Medicine; ATTEND Internal Medicine
PROC: 5A1D70Z Performance of Urinary Filtration, Intermittent, Less than 6 Hours Per Day (ICD-10-PCS; principal; 2018-12-29)
PROC: 5A1D70Z Performance of Urinary Filtration, Intermittent, Less than 6 Hours Per Day (ICD-10-PCS; 2018-12-30)
DX: I13.2 Hypertensive heart and chronic kidney disease with heart failure and with stage 5 chronic kidney disease, or end stage renal disease (principal); J96.91 Respiratory failure, unspecified with hypoxia; J84.9 Interstitial pulmonary disease, unspecified; I27.20 Pulmonary hypertension, unspecified; N18.6 End stage renal disease; E44.1 Mild protein-calorie malnutrition; I47.1 Supraventricular tachycardia; I48.91 Unspecified atrial fibrillation; I50.21 Acute systolic (congestive) heart failure; E78.5 Hyperlipidemia, unspecified; I25.10 Atherosclerotic heart disease of native coronary artery without angina pectoris; I08.0 Rheumatic disorders of both mitral and aortic valves; D63.8 Anemia in other chronic diseases classified elsewhere; J44.9 Chronic obstructive pulmonary disease, unspecified; I25.5 Ischemic cardiomyopathy; R74.0 Nonspecific elevation of levels of transaminase and lactic acid dehydrogenase [LDH]; Z91.15 Patient's noncompliance with renal dialysis; Z95.1 Presence of aortocoronary bypass graft; Z79.899 Other long term (current) drug therapy; Z95.2 Presence of prosthetic heart valve; Z99.2 Dependence on renal dialysis; Z82.49 Family history of ischemic heart disease and other diseases of the circulatory system; Z68.22 Body mass index [BMI] 22.0-22.9, adult; Z79.82 Long term (current) use of aspirin; Z79.02 Long term (current) use of antithrombotics/antiplatelets
CPT/HCPCS: 36415; 71045; 80048; 80061; 80305; 82550; 82553; 83735; 84100; 84439; 84443; 84484; 85379; 93005; 96374; 99285; J1650; J2270; J2405

== ENCOUNTER 2019-01-03 07:41 | Inpatient (IN) | payer MEDICAID ==
[~2019-01-03] VITALS: Ht 172.7 cm; Wt 64.9 kg
[~2019-01-03 07:41] MED LIST changes: -FURO40TA5 PO; -HYDR100T26 PO
[2019-01-03] MEDS ORDERED: ASPIRIN 81MG TABLET PO ONE (08:00)
[2019-01-03] MEDS ORDERED: NITROGLYCERIN OINT 1GM/INCH UDPKT TD ONE (08:00)
[2019-01-03 08:07] LABS: EOSINOPHILS % 7.6 % (0.0-5.0); HEMOGLOBIN. 10.3 g/dL (14.0-18.0); LYMPHOCYTES % 14.5 % (20.0-50.0); MEAN CORPUSCULAR HEMOGLOBIN 26.9 pg (28.0-32.0); MEAN CORPUSCULAR VOLUME 86.1 fL (80.0-94.0); MONOCYTES % 11.4 % (2.0-8.0); NEUTROPHILS % 64.5 % (40.0-76.0); PLATELET 240 x1000/uL (130-400); RED BLOOD CELL COUNT 3.83 mill/uL (4.7-6.1); RED CELL DISTRIBUTION WIDTH 23.1 % (11.6-14.6)
[2019-01-03 08:10] LABS: CHLORIDE 112 mEq/L (98-107)
[2019-01-03 08:18] LABS: BG BASE EXCESS -0.6 mmol/L (-2.0-2.0); BG BILEVEL POS AIRWAY PRESSURE ST=15/5; BG CARBOXYHEMOGLOBIN 0.3 % (0.5-1.5); BG DEOXYHEMOGLOBIN 1.3 % (0.0-5.0); BG FRACTION INSPIRED OXYGEN 35; BG HCO3 ACT 22.8 mmol/L (22.0-26.0); BG METHEMOGLOBIN 0.1 % (0.0-1.5); BG OXYGEN SATURATION 98.7 % (92.0-98.5); BG OXYHEMOGLOBIN 98.3 % (94.0-97.0); BG PCO2 33.4 mmHg (35.0-45.0); BG PH 7.453 (7.350-7.450); BG PO2 133.2 mmHg (75.0-100.0); BG PRESSURE SUPPORT 10; BG SAMPLE SITE RIGHT RADIAL; BG TOTAL HEMOGLOBIN 10.9 g/dL (12.0-18.0); BG VENT MODE MASK - BIPAP; BG VENT RATE 18 set
[2019-01-03 08:27] LABS: INR 1.2; PARTIAL THROMBOPLASTIN TIME 28.8 sec (23.4-31.0); PROTHROMBIN TIME 12.3 sec (9.6-11.0)
[2019-01-03 08:54] LABS: PLATELET ESTIMATE NORMAL
[2019-01-03] MEDS ORDERED: SODIUM BICARBONATE 8.4% 1 MEQ/ML 50ML SYR IV ONE (09:30)
[2019-01-03] MEDS ORDERED: DEXTROSE 50% WATER 50ML SYRINGE IV ONE (09:30)
[2019-01-03] MEDS ORDERED: INSULIN REGULAR (HUMULIN R) 300UNITS/3ML IV ONE (09:30)
[2019-01-03] MEDS ORDERED: ALBUTEROL (0.083%) 2.5MG/3ML NEB HHN ONE (09:30)
[2019-01-03] MEDS ORDERED: SODIUM POLYSTYRENE SULFONATE 15 G/60 ML BOT PO ONE (09:30)
[2019-01-03 11:30] VITALS: BP 147/99
[2019-01-03 12:00] VITALS: BP_SYST 103; BP_SYST 147; BP_DIAS 72; BP_DIAS 99
[2019-01-03] MEDS ORDERED: GUAIFENESIN 200MG/10ML SUGAR FREE UDC PO PRN (12:15)
[2019-01-03] MEDS ORDERED: DIPHENHYDRAMINE 50MG/ML VIAL IV PRN (12:15)
[2019-01-03] MEDS ORDERED: ONDANSETRON HCL 4MG/2ML INJ IV PRN (12:15)
[2019-01-03] MEDS ORDERED: ACETAMINOPHEN 650MG SUPP PR PRN (12:15)
[2019-01-03] MEDS ORDERED: HYDROCODONE/ACETAMINOPHEN 5/325MG TABLET PO PRN (12:15)
[2019-01-03] MEDS ORDERED: DOCUSATE SODIUM 100MG CAPSULE PO PRN (12:15)
[2019-01-03] MEDS ORDERED: IPRATROPIUM/ALBUTEROL 0.5-3(2.5)MG/3ML NEB INH PRN (12:15)
[2019-01-03] MEDS ORDERED: ACETAMINOPHEN 650MG/20.3ML UDC GT PRN (12:15)
[2019-01-03] MEDS ORDERED: HYDROCODONE/ACETAMINOPHEN 10/325MG TABLET PO PRN (12:15)
[2019-01-03] MEDS ORDERED: CLONIDINE 0.1MG TABLET PO PRN (12:15)
[2019-01-03] MEDS ORDERED: ENOXAPARIN 40MG/0.4ML SYR SUBCUT SCH (12:15)
[2019-01-03] MEDS ORDERED: ACETAMINOPHEN 325MG TABLET PO PRN (12:15)
[2019-01-03] MEDS ORDERED: NA PHOS,M-B/NA PHOS,DI-BA ENEMA 118ML PR PRN (12:15)
[2019-01-03] MEDS ORDERED: MAGNESIUM/ALUMINUM HYDROXIDE/SIMETHICONE 30ML UDC PO PRN (12:15)
[2019-01-03] MEDS: ENOXAPARIN 30MG/0.3ML SYR SUBCUT SCH (13:00)
[2019-01-03 14:00] VITALS: BP 162/89
[2019-01-03] MEDS: SODIUM CHLORIDE 0.9% INJ 3ML FLUSH IVF SCH ×2 (14:17→22:00)
[2019-01-03 16:00] VITALS: BP 154/71
[2019-01-03 16:20] LABS: CLARITY URINE CLEAR (CLEAR); COLOR URINE YELLOW (YELLOW); KETONES URINE NEGATIVE (NEGATIVE); LEUKOCYTE ESTERASE URINE NEGATIVE (NEGATIVE); NITRITE URINE NEGATIVE (NEGATIVE); OCCULT BLOOD URINE NEGATIVE (NEGATIVE); PH URINE 6.5 (4.5-8.0); PROTEIN URINE 1+ (NEGATIVE); SPECIFIC GRAVITY URINE 1.019 (1.005-1.030)
[2019-01-03 16:30] LABS: *AMPHETAMINES SCREEN URINE NEGATIVE (NEGATIVE); *BARBITURATES SCREEN URINE NEGATIVE (NEGATIVE); *BENZODIAZEPINES SCREEN URINE NEGATIVE (NEGATIVE); *COCAINE SCREEN URINE PRESUMTIVE POSITIVE (NEGATIVE)
[2019-01-03 16:31] LABS: CANNABINOID URINE SCREEN NEGATIVE (NEGATIVE); METHADONE URINE SCREEN NEGATIVE (NEGATIVE); OPIATES URINE SCREEN NEGATIVE (NEGATIVE)
[2019-01-03 16:32] LABS: PHENCYCLIDINE URINE SCREEN NEGATIVE (NEGATIVE)
[2019-01-03 20:00] VITALS: BP 140/83
[2019-01-03] MEDS ORDERED: CARVEDILOL 3.125 MG TABLET PO SCH (21:00)
[2019-01-03] MEDS: IPRATROPIUM/ALBUTEROL 0.5-3(2.5)MG/3ML NEB HHN SCH (21:08)
[2019-01-03 22:00] VITALS: BP 156/89
[2019-01-03] MEDS: CARVEDILOL 3.125 MG TABLET PO SCH (23:40)
[2019-01-04] VITALS (12 sets, daily range): BP systolic 113–144; BP diastolic 67–97
[2019-01-04] MEDS: IPRATROPIUM/ALBUTEROL 0.5-3(2.5)MG/3ML NEB HHN SCH ×4 (01:00→20:55)
[2019-01-04 01:47] LABS: CREATINE KINASE MB FRACTION 1.9 ng/mL (0.5-3.6)
[2019-01-04] MEDS: SODIUM CHLORIDE 0.9% INJ 3ML FLUSH IVF SCH ×3 (05:06→21:48)
[2019-01-04 07:40] LABS: BASOPHILS % 1.6 % (0.0-2.0); EOSINOPHILS % 9.5 % (0.0-5.0); HEMATOCRIT. 30.6 % (42.0-52.0); HEMOGLOBIN. 9.5 g/dL (14.0-18.0); LYMPHOCYTES % 20.9 % (20.0-50.0); MEAN CORPUSCULAR HEMOGLOBIN 26.8 pg (28.0-32.0); MEAN CORPUSCULAR VOLUME 86.6 fL (80.0-94.0); MEAN PLATELET VOLUME 7.7 fl (7.4-10.4); MONOCYTES % 11.3 % (2.0-8.0); NEUTROPHILS % 56.7 % (40.0-76.0); PLATELET 138 x1000/uL (130-400); RED BLOOD CELL COUNT 3.54 mill/uL (4.7-6.1); RED CELL DISTRIBUTION WIDTH 22.3 % (11.6-14.6)
[2019-01-04 08:17] LABS: CHLORIDE 108 mEq/L (98-107)
[2019-01-04 08:28] LABS: LDL CHOLESTEROL 64 mg/dL (5-100)
[2019-01-04 08:30] LABS: HDL CHOLESTEROL 47 mg/dL (40-59)
[2019-01-04] MEDS: CARVEDILOL 3.125 MG TABLET PO SCH ×2 (08:55→20:24)
[2019-01-04 10:28] LABS: BG BASE EXCESS 1.7 mmol/L (-2.0-2.0); BG CARBOXYHEMOGLOBIN 0.3 % (0.5-1.5); BG DEOXYHEMOGLOBIN 7.4 % (0.0-5.0); BG FRACTION INSPIRED OXYGEN 21; BG HCO3 ACT 25.3 mmol/L (22.0-26.0); BG METHEMOGLOBIN 0.6 % (0.0-1.5); BG OXYGEN SATURATION 92.5 % (92.0-98.5); BG OXYHEMOGLOBIN 91.7 % (94.0-97.0); BG PH 7.465 (7.350-7.450); BG PO2 64.6 mmHg (75.0-100.0); BG SAMPLE SITE LEFT RADIAL; BG VENT MODE ROOM AIR
[2019-01-04] MEDS: ENOXAPARIN 30MG/0.3ML SYR SUBCUT SCH (13:17)
[2019-01-05] VITALS (8 sets, daily range): BP systolic 126–148; BP diastolic 81–93
[2019-01-05] MEDS: IPRATROPIUM/ALBUTEROL 0.5-3(2.5)MG/3ML NEB HHN SCH ×2 (02:25→08:55)
[2019-01-05] MEDS: SODIUM CHLORIDE 0.9% INJ 3ML FLUSH IVF SCH (05:06)
[2019-01-05 06:20] LABS: BASOPHILS % 0.7 % (0.0-2.0); EOSINOPHILS % 6.6 % (0.0-5.0); HEMATOCRIT. 31.8 % (42.0-52.0); HEMOGLOBIN. 10.1 g/dL (14.0-18.0); LYMPHOCYTES % 18.4 % (20.0-50.0); MEAN CORPUSCULAR HEMOGLOBIN 27.3 pg (28.0-32.0); MEAN CORPUSCULAR VOLUME 86.1 fL (80.0-94.0); MEAN PLATELET VOLUME 8.3 fl (7.4-10.4); MONOCYTES % 14.1 % (2.0-8.0); NEUTROPHILS % 60.2 % (40.0-76.0); PLATELET 138 x1000/uL (130-400)
[2019-01-05] MEDS: CARVEDILOL 3.125 MG TABLET PO SCH (09:23)
[2019-01-05 09:29] LABS: PHOSPHORUS 2.7 mg/dL (2.5-4.9)
[2019-01-05] MEDS ORDERED: ENOXAPARIN 40MG/0.4ML SYR SUBCUT SCH (18:00)
== END 2019-01-05 11:05 | disposition left against medical advice (07) | DRG 816 ==
LOC: ER 07:41 → EDBEDREQ 07:53 → 3WST 09:39 → EDBEDREQTM 09:42 → EDBEDREQ 09:42 → ENRESERV 10:23
PROVIDERS: ADMIT Family Medicine; ATTEND Family Medicine
PROC: 5A09357 Assistance with Respiratory Ventilation, Less than 24 Consecutive Hours, Continuous Positive Airway Pressure (ICD-10-PCS; principal; 2019-01-03)
PROC: 5A1D70Z Performance of Urinary Filtration, Intermittent, Less than 6 Hours Per Day (ICD-10-PCS; 2019-01-03)
PROC: 5A09357 Assistance with Respiratory Ventilation, Less than 24 Consecutive Hours, Continuous Positive Airway Pressure (ICD-10-PCS; 2019-01-04)
DX: T40.5X1A Poisoning by cocaine, accidental (unintentional), initial encounter (principal); J96.01 Acute respiratory failure with hypoxia; I13.2 Hypertensive heart and chronic kidney disease with heart failure and with stage 5 chronic kidney disease, or end stage renal disease; I27.20 Pulmonary hypertension, unspecified; I71.2 Thoracic aortic aneurysm, without rupture; E44.0 Moderate protein-calorie malnutrition; I48.91 Unspecified atrial fibrillation; N18.6 End stage renal disease; J68.0 Bronchitis and pneumonitis due to chemicals, gases, fumes and vapors; D63.1 Anemia in chronic kidney disease; E78.5 Hyperlipidemia, unspecified; I25.10 Atherosclerotic heart disease of native coronary artery without angina pectoris; I34.0 Nonrheumatic mitral (valve) insufficiency; I50.23 Acute on chronic systolic (congestive) heart failure; Z82.49 Family history of ischemic heart disease and other diseases of the circulatory system; Z91.15 Patient's noncompliance with renal dialysis; Z91.19 Patient's noncompliance with other medical treatment and regimen; Z99.2 Dependence on renal dialysis; Y92.89 Other specified places as the place of occurrence of the external cause; Z79.82 Long term (current) use of aspirin; Z79.899 Other long term (current) drug therapy; Z68.21 Body mass index [BMI] 21.0-21.9, adult
CPT/HCPCS: 36415; 36600; 71045; 80048; 80061; 80305; 82375; 82550; 82553; 82805; 82962; 83735; 83880; 84100; 84484; 87015; 87045; 87427; 87449; 87493; 93005; 94644; 94660; 99285; A6261; J1650; J1815; J2405; J3490; J7611; J7620

== ENCOUNTER 2019-01-13 18:21 | Emergency (ER) | payer MEDICAID ==
[~2019-01-13] VITALS: Ht 172.7 cm; Wt 80.0 kg
[2019-01-13] MEDS ORDERED: SODIUM CHLORIDE 0.9% 1,000 ML IV ONE (19:53)
[2019-01-13] MEDS ORDERED: MAGNESIUM/ALUMINUM HYDROXIDE/SIMETHICONE 30ML UDC PO STA (19:53)
[2019-01-13] MEDS ORDERED: ONDANSETRON HCL 4MG/2ML INJ IV STA (19:53)
[2019-01-13 20:41] LABS: BASOPHILS % 1.4 % (0.0-2.0); EOSINOPHILS % 4.2 % (0.0-5.0); HEMATOCRIT. 34.9 % (42.0-52.0); HEMOGLOBIN. 11.1 g/dL (14.0-18.0); MEAN CORPUSCULAR VOLUME 85.4 fL (80.0-94.0); MEAN PLATELET VOLUME 7.7 fl (7.4-10.4); MONOCYTES % 14.6 % (2.0-8.0); NEUTROPHILS % 54.8 % (40.0-76.0); PLATELET 210 x1000/uL (130-400); RED BLOOD CELL COUNT 4.09 mill/uL (4.7-6.1); RED CELL DISTRIBUTION WIDTH 21.9 % (11.6-14.6)
[2019-01-13 20:42] LABS: CHLORIDE 107 mEq/L (98-107)
[2019-01-13 20:59] LABS: INR 1.2
[2019-01-13 22:27] VITALS: BP 132/92
== END 2019-01-13 22:27 | disposition home or self-care (01) ==
LOC: ER 18:21
DX: R10.33 Periumbilical pain (principal); I13.2 Hypertensive heart and chronic kidney disease with heart failure and with stage 5 chronic kidney disease, or end stage renal disease; N18.6 End stage renal disease; I50.9 Heart failure, unspecified; Z99.2 Dependence on renal dialysis
CPT/HCPCS: 36415; 74176; 80053; 83690; 85025; 85610; 93005; 96361; 96374; 99284; J2405; J7030; Z7610

== ENCOUNTER 2019-01-15 06:17 | Inpatient (IN) | payer MEDICAID ==
[~2019-01-15] VITALS: Ht 172.7 cm; Wt 60.3 kg
[2019-01-15] MEDS ORDERED: ONDANSETRON HCL 4MG/2ML INJ IV ONE (07:30)
[2019-01-15] MEDS ORDERED: MORPHINE SULFATE 4 MG/ML CPJ (NOT FOR IM USE) IV ONE (07:45)
[2019-01-15 07:55] LABS: BASOPHILS % 1.4 % (0.0-2.0); EOSINOPHILS % 2.2 % (0.0-5.0); HEMOGLOBIN. 10.9 g/dL (14.0-18.0); LYMPHOCYTES % 19.2 % (20.0-50.0); MEAN CORPUSCULAR HEMOGLOBIN 26.2 pg (28.0-32.0); MEAN CORPUSCULAR VOLUME 86.4 fL (80.0-94.0); MEAN PLATELET VOLUME 7.6 fl (7.4-10.4); NEUTROPHILS % 64.2 % (40.0-76.0); PLATELET 199 x1000/uL (130-400); RED BLOOD CELL COUNT 4.16 mill/uL (4.7-6.1)
[2019-01-15 08:02] LABS: CHLORIDE 105 mEq/L (98-107); INR 1.3; PROTHROMBIN TIME 13.1 sec (9.6-11.0)
[2019-01-15 08:54] LABS: PLATELET ESTIMATE NORMAL
[2019-01-15] MEDS ORDERED: ASPIRIN 81MG TABLET PO ONE (09:30)
[2019-01-15 10:46] LABS: CLARITY URINE CLEAR (CLEAR); COLOR URINE DARK YELLOW (YELLOW); KETONES URINE TRACE (NEGATIVE); LEUKOCYTE ESTERASE URINE NEGATIVE (NEGATIVE); NITRITE URINE NEGATIVE (NEGATIVE); OCCULT BLOOD URINE NEGATIVE (NEGATIVE); PROTEIN URINE 1+ (NEGATIVE)
[2019-01-15 16:00] VITALS: BP_SYST 156; BP_SYST 158; BP_DIAS 72; BP_DIAS 76
[2019-01-15 18:00] VITALS: BP 156/72
[2019-01-15 20:00] VITALS: BP 143/75
[2019-01-15] MEDS ORDERED: ONDANSETRON HCL 4MG/2ML INJ IV PRN (21:30)
[2019-01-16] VITALS: BP 140/73
[2019-01-16] MEDS ORDERED: CLOPIDOGREL 75MG TABLET PO SCH (01:00)
[2019-01-16] MEDS ORDERED: METO5TAB69 PO (01:01)
[2019-01-16] MEDS ORDERED: NITR0.4T49 SL (01:04)
[2019-01-16] MEDS: FAMOTIDINE 20MG/2ML VIAL IV SCH ×2 (01:15→09:46)
[2019-01-16] MEDS: CLOPIDOGREL 75MG TABLET PO SCH (01:16)
[2019-01-16] MEDS: FUROSEMIDE 40MG/4ML VIAL IVP SCH ×3 (01:16→18:00)
[2019-01-16] MEDS: ISOSORBIDE MONONITRATE 30MG TABLET SR 24HR PO SCH (01:19)
[2019-01-16 04:00] VITALS: BP_SYST 129; BP_SYST 143; BP_DIAS 79; BP_DIAS 84
[2019-01-16] MEDS: IPRATROPIUM/ALBUTEROL 0.5-3(2.5)MG/3ML NEB HHN SCH ×5 (04:54→21:35)
[2019-01-16] MEDS: HYDRALAZINE HCL 25MG TABLET PO SCH ×3 (05:13→21:32)
[2019-01-16 08:00] VITALS: BP 144/91
[2019-01-16] MEDS: ASPIRIN 81MG EC TABLET PO SCH (09:35)
[2019-01-16] MEDS: AMIODARONE HCL 200 MG TABLET PO SCH (09:35)
[2019-01-16 12:00] VITALS: BP 137/85
[2019-01-16 13:02] LABS: HEMATOCRIT 32.7 % (42.0-52.0); HEMOGLOBIN 10.2 g/dL (14.0-18.0); MEAN CORPUSCULAR HEMOGLOBIN 26.7 pg (28.0-32.0); MEAN CORPUSCULAR VOLUME 86.1 fL (80.0-94.0); PLATELET 179 x1000/uL (130-400); RED CELL DISTRIBUTION WIDTH 22.1 % (11.6-14.6)
[2019-01-16] MEDS: FOLIC ACID/VITAMIN B COMP W-C TABLET PO SCH (13:06)
[2019-01-16 13:26] LABS: CHLORIDE 101 mEq/L (98-107)
[2019-01-16 16:00] VITALS: BP 132/79
[2019-01-16 20:00] VITALS: BP 136/82
[2019-01-16] MEDS ORDERED: ATORVASTATIN CALCIUM 40MG TABLET PO SCH (21:00)
[2019-01-17] VITALS: BP 128/82
[2019-01-17] MEDS: IPRATROPIUM/ALBUTEROL 0.5-3(2.5)MG/3ML NEB HHN SCH ×3 (02:03→11:18)
[2019-01-17] MEDS: FUROSEMIDE 40MG/4ML VIAL IVP SCH ×2 (02:05→09:22)
[2019-01-17 04:00] VITALS: BP 138/91
[2019-01-17] MEDS: HYDRALAZINE HCL 25MG TABLET PO SCH (05:25)
[2019-01-17 06:54] LABS: HEMATOCRIT. 31.5 % (42.0-52.0); MEAN CORPUSCULAR HEMOGLOBIN 26.9 pg (28.0-32.0); MEAN CORPUSCULAR VOLUME 84.8 fL (80.0-94.0); MEAN PLATELET VOLUME 8.2 fl (7.4-10.4); PLATELET 151 x1000/uL (130-400); RED BLOOD CELL COUNT 3.71 mill/uL (4.7-6.1); RED CELL DISTRIBUTION WIDTH 21.9 % (11.6-14.6)
[2019-01-17 07:12] LABS: CHLORIDE 104 mEq/L (98-107)
[2019-01-17 07:19] LABS: PHOSPHORUS 3.7 mg/dL (2.5-4.9)
[2019-01-17 08:00] VITALS: BP 153/89
[2019-01-17] MEDS: FOLIC ACID/VITAMIN B COMP W-C TABLET PO SCH (09:21)
[2019-01-17] MEDS: AMIODARONE HCL 200 MG TABLET PO SCH (09:22)
[2019-01-17] MEDS: CLOPIDOGREL 75MG TABLET PO SCH (09:22)
[2019-01-17] MEDS: FAMOTIDINE 20MG/2ML VIAL IV SCH (09:22)
[2019-01-17] MEDS: ISOSORBIDE MONONITRATE 30MG TABLET SR 24HR PO SCH (09:22)
[2019-01-17] MEDS: ASPIRIN 81MG EC TABLET PO SCH (09:22)
[2019-01-17] MEDS ORDERED: CLONIDINE 0.1MG TABLET PO ONE (10:30)
[2019-01-17 12:00] VITALS: BP 142/84
[2019-01-17 12:46] LABS: PLATELET ESTIMATE NORMAL
[2019-01-17 14:48] VITALS: BP 153/89
[2019-01-17] MEDS ORDERED: EPOETIN ALFA 4000UNITS/ML VIAL SUBCUT SCH (21:00)
== END 2019-01-17 15:23 | disposition home or self-care (01) | DRG 194 ==
LOC: ER 06:17 → 6WST 09:26 → ENRESERV 15:17
PROVIDERS: ADMIT Internal Medicine; ATTEND Internal Medicine
PROC: 5A1D70Z Performance of Urinary Filtration, Intermittent, Less than 6 Hours Per Day (ICD-10-PCS; principal; 2019-01-16)
PROC: 5A1D70Z Performance of Urinary Filtration, Intermittent, Less than 6 Hours Per Day (ICD-10-PCS; 2019-01-17)
DX: I13.2 Hypertensive heart and chronic kidney disease with heart failure and with stage 5 chronic kidney disease, or end stage renal disease (principal); G93.40 Encephalopathy, unspecified; I71.2 Thoracic aortic aneurysm, without rupture; J44.1 Chronic obstructive pulmonary disease with (acute) exacerbation; I42.9 Cardiomyopathy, unspecified; N18.6 End stage renal disease; K52.9 Noninfective gastroenteritis and colitis, unspecified; I34.0 Nonrheumatic mitral (valve) insufficiency; I50.9 Heart failure, unspecified; Z82.49 Family history of ischemic heart disease and other diseases of the circulatory system; Z99.2 Dependence on renal dialysis
CPT/HCPCS: 36415; 71045; 74176; 83735; 83880; 84100; 84484; 85027; 93005; 93970; 94640; 96374; 96375; 97161; 99285; J1940; J2270; J2405; J3490; J7620

== ENCOUNTER 2019-01-21 15:37 | Inpatient (IN) | payer MEDICAID ==
[~2019-01-21] VITALS: Ht 172.7 cm; Wt 61.2 kg
[~2019-01-21 15:37] MED LIST changes: +METO5TAB69 PO; +NITR0.4T49 SL
[2019-01-21] MEDS ORDERED: MORPHINE SULFATE 4 MG/ML CPJ (NOT FOR IM USE) IV STA (17:27)
[2019-01-21] MEDS ORDERED: ONDANSETRON HCL 4MG/2ML INJ IV STA (17:27)
[2019-01-21 18:15] LABS: BASOPHILS % 2.6 % (0.0-2.0); EOSINOPHILS % 1.5 % (0.0-5.0); HEMATOCRIT. 38.2 % (42.0-52.0); HEMOGLOBIN. 11.7 g/dL (14.0-18.0); LYMPHOCYTES % 23.9 % (20.0-50.0); MEAN CORPUSCULAR HEMOGLOBIN 26.4 pg (28.0-32.0); MEAN CORPUSCULAR VOLUME 86.2 fL (80.0-94.0); MEAN PLATELET VOLUME 7.8 fl (7.4-10.4); MONOCYTES % 14.2 % (2.0-8.0); NEUTROPHILS % 57.8 % (40.0-76.0); PLATELET 207 x1000/uL (130-400); RED BLOOD CELL COUNT 4.43 mill/uL (4.7-6.1); RED CELL DISTRIBUTION WIDTH 21.3 % (11.6-14.6)
[2019-01-21 18:16] LABS: CHLORIDE 101 mEq/L (98-107)
[2019-01-21 18:18] LABS: INR 1.3; PARTIAL THROMBOPLASTIN TIME 25.8 sec (23.4-31.0); PROTHROMBIN TIME 13.4 sec (9.6-11.0)
[2019-01-21] MEDS ORDERED: ASPIRIN 325MG EC TABLET PO ONE (19:30)
[2019-01-21 20:22] LABS: CLARITY URINE CLEAR (CLEAR); COLOR URINE DARK YELLOW (YELLOW); KETONES URINE TRACE (NEGATIVE); LEUKOCYTE ESTERASE URINE NEGATIVE (NEGATIVE); NITRITE URINE NEGATIVE (NEGATIVE); OCCULT BLOOD URINE NEGATIVE (NEGATIVE); PROTEIN URINE 2+ (NEGATIVE)
[2019-01-21 21:30] VITALS: BP 140/92
[2019-01-21 21:45] VITALS: BP 140/92
[2019-01-21] MEDS ORDERED: ONDANSETRON HCL 4MG/2ML INJ IV PRN (23:15)
[2019-01-21] MEDS ORDERED: CLONIDINE 0.1MG TABLET PO PRN (23:15)
[2019-01-21] MEDS ORDERED: ACETAMINOPHEN 325MG TABLET PO PRN (23:15)
[2019-01-21] MEDS ORDERED: HYDROCODONE/ACETAMINOPHEN 5/325MG TABLET PO PRN (23:15)
[2019-01-21] MEDS ORDERED: IPRATROPIUM/ALBUTEROL 0.5-3(2.5)MG/3ML NEB INH PRN (23:15)
[2019-01-21] MEDS ORDERED: DOCUSATE SODIUM 100MG CAPSULE PO PRN (23:15)
[2019-01-22] VITALS: BP 138/83
[2019-01-22] MEDS ORDERED: FUROSEMIDE 100MG/10ML VIAL IV SCH (00:30)
[2019-01-22 04:00] VITALS: BP 156/96
[2019-01-22 07:09] LABS: HEMATOCRIT. 36.6 % (42.0-52.0); HEMOGLOBIN. 11.1 g/dL (14.0-18.0); MEAN CORPUSCULAR HEMOGLOBIN 26.2 pg (28.0-32.0); MEAN CORPUSCULAR VOLUME 86.2 fL (80.0-94.0); MEAN PLATELET VOLUME 8.1 fl (7.4-10.4); PLATELET 199 x1000/uL (130-400); RED BLOOD CELL COUNT 4.25 mill/uL (4.7-6.1); RED CELL DISTRIBUTION WIDTH 21.5 % (11.6-14.6)
[2019-01-22 07:37] LABS: CREATINE KINASE MB FRACTION 1.4 ng/mL (0.5-3.6)
[2019-01-22 08:00] VITALS: BP 131/82
[2019-01-22] MEDS: ASPIRIN 81MG EC TABLET PO SCH (08:16)
[2019-01-22] MEDS: OMEPRAZOLE 20MG CAPSULE EXTENDED RELEASE PO SCH (10:31)
[2019-01-22 12:00] VITALS: BP 127/78
[2019-01-22] MEDS: METOCLOPRAMIDE HCL 10MG/2ML VIAL IV SCH ×3 (13:05→23:52)
[2019-01-22 13:17] LABS: CANNABINOID URINE SCREEN NEGATIVE (NEGATIVE); METHADONE URINE SCREEN NEGATIVE (NEGATIVE); PHENCYCLIDINE URINE SCREEN NEGATIVE (NEGATIVE)
[2019-01-22 13:18] LABS: *AMPHETAMINES SCREEN URINE NEGATIVE (NEGATIVE); *BARBITURATES SCREEN URINE NEGATIVE (NEGATIVE); *BENZODIAZEPINES SCREEN URINE NEGATIVE (NEGATIVE); *COCAINE SCREEN URINE NEGATIVE (NEGATIVE)
[2019-01-22 13:20] LABS: OPIATES URINE SCREEN PRESUMTIVE POSITIVE (NEGATIVE)
[2019-01-22 16:08] LABS: CREATINE KINASE MB FRACTION 1.5 ng/mL (0.5-3.6)
[2019-01-22 16:44] VITALS: BP 121/88
[2019-01-22 17:05] LABS: PLATELET ESTIMATE NORMAL
[2019-01-22] MEDS: CARVEDILOL 6.25 MG TABLET PO SCH ×2 (17:09→23:53)
[2019-01-22] MEDS: FUROSEMIDE 40MG TABLET PO SCH (17:10)
[2019-01-22 20:00] VITALS: BP 109/73
[2019-01-22] MEDS ORDERED: ATORVASTATIN CALCIUM 40MG TABLET PO SCH (21:00)
[2019-01-22] MEDS: HYDRALAZINE HCL 25MG TABLET PO SCH (21:53)
[2019-01-23] VITALS: BP 110/68
[2019-01-23 04:00] VITALS: BP 113/68
[2019-01-23] MEDS: HYDRALAZINE HCL 25MG TABLET PO SCH ×2 (05:47→13:58)
[2019-01-23] MEDS: METOCLOPRAMIDE HCL 10MG/2ML VIAL IV SCH ×2 (05:47→12:04)
[2019-01-23] MEDS: OMEPRAZOLE 20MG CAPSULE EXTENDED RELEASE PO SCH (06:22)
[2019-01-23] MEDS: FUROSEMIDE 40MG TABLET PO SCH (06:22)
[2019-01-23] MEDS ORDERED: METOLAZONE 5MG TABLET PO SCH (07:00)
[2019-01-23 07:29] LABS: BASOPHILS % 1.3 % (0.0-2.0); EOSINOPHILS % 3.5 % (0.0-5.0); HEMATOCRIT. 33.8 % (42.0-52.0); HEMOGLOBIN. 10.9 g/dL (14.0-18.0); LYMPHOCYTES % 20.4 % (20.0-50.0); MEAN CORPUSCULAR HEMOGLOBIN 27.6 pg (28.0-32.0); MEAN CORPUSCULAR VOLUME 85.7 fL (80.0-94.0); MEAN PLATELET VOLUME 8.3 fl (7.4-10.4); MONOCYTES % 14.4 % (2.0-8.0); NEUTROPHILS % 60.4 % (40.0-76.0); PLATELET 153 x1000/uL (130-400); RED BLOOD CELL COUNT 3.94 mill/uL (4.7-6.1); RED CELL DISTRIBUTION WIDTH 21.3 % (11.6-14.6)
[2019-01-23 07:59] LABS: PHOSPHORUS 4.5 mg/dL (2.5-4.9)
[2019-01-23 08:00] VITALS: BP 126/86
[2019-01-23] MEDS: CARVEDILOL 6.25 MG TABLET PO SCH (08:45)
[2019-01-23] MEDS: ASPIRIN 81MG EC TABLET PO SCH (08:45)
[2019-01-23] MEDS ORDERED: NICOTINE 14MG PATCH TD SCH (09:00)
[2019-01-23] MEDS ORDERED: ISOSORBIDE MONONITRATE 30MG TABLET SR 24HR PO SCH (09:00)
[2019-01-23] MEDS ORDERED: ASPIRIN 81MG TABLET PO SCH (09:00)
[2019-01-23] MEDS ORDERED: AMIODARONE HCL 200 MG TABLET PO SCH (09:00)
[2019-01-23] MEDS ORDERED: CLOPIDOGREL 75MG TABLET PO SCH (09:00)
[2019-01-23 12:00] VITALS: BP 120/76
[2019-01-23 14:14] VITALS: BP 120/76
== END 2019-01-23 15:35 | disposition home or self-care (01) | DRG 198 ==
LOC: ER 15:37 → 8WST 19:22 → ENRESERV 20:39
PROVIDERS: ADMIT Internal Medicine; ATTEND Internal Medicine
PROC: 5A1D70Z Performance of Urinary Filtration, Intermittent, Less than 6 Hours Per Day (ICD-10-PCS; principal; 2019-01-22)
DX: R07.89 Other chest pain (principal); I25.10 Atherosclerotic heart disease of native coronary artery without angina pectoris; I13.2 Hypertensive heart and chronic kidney disease with heart failure and with stage 5 chronic kidney disease, or end stage renal disease; I27.20 Pulmonary hypertension, unspecified; I42.0 Dilated cardiomyopathy; N18.6 End stage renal disease; E87.5 Hyperkalemia; J44.9 Chronic obstructive pulmonary disease, unspecified; E78.5 Hyperlipidemia, unspecified; K57.30 Diverticulosis of large intestine without perforation or abscess without bleeding; I50.22 Chronic systolic (congestive) heart failure; I71.2 Thoracic aortic aneurysm, without rupture; I44.7 Left bundle-branch block, unspecified; D72.821 Monocytosis (symptomatic); R94.4 Abnormal results of kidney function studies; I08.0 Rheumatic disorders of both mitral and aortic valves; D63.8 Anemia in other chronic diseases classified elsewhere; E78.00 Pure hypercholesterolemia, unspecified; I25.5 Ischemic cardiomyopathy; I47.1 Supraventricular tachycardia; Z79.51 Long term (current) use of inhaled steroids; Z99.2 Dependence on renal dialysis; Z82.49 Family history of ischemic heart disease and other diseases of the circulatory system; Z72.0 Tobacco use; Z91.15 Patient's noncompliance with renal dialysis
CPT/HCPCS: 36415; 71045; 74176; 80048; 80061; 80305; 82550; 82553; 82728; 83540; 83550; 83735; 83880; 84100; 84443; 84481; 84484; 93005; 96374; 96375; 99285; J1940; J2270; J2405; J2765

== ENCOUNTER 2019-01-27 06:01 | Emergency (ER) | payer MEDICAID ==
[~2019-01-27] VITALS: Ht 167.6 cm; Wt 54.0 kg
[2019-01-27] MEDS ORDERED: ONDANSETRON HCL 4MG/2ML INJ IV STA (06:37)
[2019-01-27] MEDS ORDERED: MORPHINE SULFATE 4 MG/ML CPJ (NOT FOR IM USE) IV STA (06:37)
[2019-01-27 07:15] LABS: CHLORIDE 99 mEq/L (98-107)
[2019-01-27 07:17] LABS: INR 1.2; PROTHROMBIN TIME 12.7 sec (9.6-11.0)
[2019-01-27 07:27] LABS: HEMATOCRIT. 31.3 % (42.0-52.0); HEMOGLOBIN. 9.8 g/dL (14.0-18.0); MEAN CORPUSCULAR HEMOGLOBIN 26.2 pg (28.0-32.0); MEAN CORPUSCULAR VOLUME 83.9 fL (80.0-94.0); MEAN PLATELET VOLUME 8.3 fl (7.4-10.4); PLATELET 172 x1000/uL (130-400); RED BLOOD CELL COUNT 3.73 mill/uL (4.7-6.1); RED CELL DISTRIBUTION WIDTH 21.5 % (11.6-14.6)
[2019-01-27 08:07] LABS: NUCLEATED RED BLOOD CELLS 1 /100 WBC; PLATELET ESTIMATE NORMAL
[2019-01-27 08:47] LABS: CLARITY URINE CLEAR (CLEAR); COLOR URINE YELLOW (YELLOW); KETONES URINE NEGATIVE (NEGATIVE); LEUKOCYTE ESTERASE URINE NEGATIVE (NEGATIVE); NITRITE URINE NEGATIVE (NEGATIVE); OCCULT BLOOD URINE NEGATIVE (NEGATIVE); PROTEIN URINE NEGATIVE (NEGATIVE); SPECIFIC GRAVITY URINE 1.013 (1.005-1.030)
[2019-01-27 09:20] VITALS: BP 137/82
== END 2019-01-27 10:15 | disposition home or self-care (01) ==
LOC: ER 06:01
DX: R10.84 Generalized abdominal pain (principal); I13.2 Hypertensive heart and chronic kidney disease with heart failure and with stage 5 chronic kidney disease, or end stage renal disease; N18.6 End stage renal disease; I50.9 Heart failure, unspecified; D63.1 Anemia in chronic kidney disease; Z99.2 Dependence on renal dialysis; Z79.82 Long term (current) use of aspirin
CPT/HCPCS: 36415; 80053; 81003; 83690; 84484; 85025; 85610; 96374; 96375; 99283; J2270; J2405; Z7610

== ENCOUNTER 2019-02-09 00:01 | Emergency (ER) | payer MEDICAID ==
[~2019-02-09] VITALS: Ht 172.7 cm; Wt 61.0 kg
[2019-02-09] MEDS ORDERED: LABETALOL 5MG/ML SYR 20 MG/4 ML SYRINGE IV ONE (01:15)
[2019-02-09 01:33] LABS: BASOPHILS % 1.5 % (0.0-2.0); EOSINOPHILS % 2.5 % (0.0-5.0); HEMATOCRIT. 33.3 % (42.0-52.0); HEMOGLOBIN. 10.2 g/dL (14.0-18.0); MEAN CORPUSCULAR HEMOGLOBIN 25.4 pg (28.0-32.0); MEAN CORPUSCULAR VOLUME 82.8 fL (80.0-94.0); MEAN PLATELET VOLUME 7.1 fl (7.4-10.4); MONOCYTES % 10.6 % (2.0-8.0); NEUTROPHILS % 66.4 % (40.0-76.0); PLATELET 299 x1000/uL (130-400); RED BLOOD CELL COUNT 4.02 mill/uL (4.7-6.1); RED CELL DISTRIBUTION WIDTH 21.1 % (11.6-14.6)
[2019-02-09 01:40] LABS: CHLORIDE 106 mEq/L (98-107)
[2019-02-09] MEDS ORDERED: ONDANSETRON HCL 4MG/2ML INJ IV ONE (02:15)
[2019-02-09] MEDS ORDERED: MORPHINE SULFATE 4 MG/ML CPJ (NOT FOR IM USE) IV ONE (02:15)
[2019-02-09 05:57] VITALS: BP 140/92
== END 2019-02-09 07:21 | disposition home or self-care (01) ==
LOC: ER 00:01
DX: R11.2 Nausea with vomiting, unspecified (principal); R10.13 Epigastric pain; I11.0 Hypertensive heart disease with heart failure; I50.9 Heart failure, unspecified; E11.9 Type 2 diabetes mellitus without complications; Z99.2 Dependence on renal dialysis; Z87.891 Personal history of nicotine dependence; Z98.890 Other specified postprocedural states; Z79.82 Long term (current) use of aspirin; Z79.899 Other long term (current) drug therapy
CPT/HCPCS: 36415; 71045; 71250; 74176; 80053; 83880; 84484; 85025; 93005; 96374; 96375; 99284; J2270; J2405; J3490; Z7610

== ENCOUNTER 2019-02-12 01:34 | Emergency (ER) | payer MEDICAID ==
[~2019-02-12] VITALS: Ht 172.7 cm; Wt 64.0 kg
[2019-02-12 03:19] VITALS: BP 146/78
== END 2019-02-12 03:52 | disposition home or self-care (01) ==
LOC: ER 01:34
DX: G89.29 Other chronic pain (principal); R10.84 Generalized abdominal pain; E78.00 Pure hypercholesterolemia, unspecified; I12.0 Hypertensive chronic kidney disease with stage 5 chronic kidney disease or end stage renal disease; N18.6 End stage renal disease; Z99.2 Dependence on renal dialysis
CPT/HCPCS: 99283